=== PATIENT | female | born 1980 | race Native Hawaiian/Other Pacific Islander ===

== ENCOUNTER 2022-10-23 21:42 | Emergency (ER) | payer OTHER ==
[~2022-10-23] VITALS: Ht 154.9 cm; Wt 83.9 kg
[2022-10-23 21:50] VITALS: TEMP 99.3
[2022-10-24 01:15] VITALS: BP 122/70
== END 2022-10-24 01:15 | disposition home or self-care (01) ==
LOC: ED 21:42
DX: H10.11 Acute atopic conjunctivitis, right eye (principal); H18.821 Corneal disorder due to contact lens, right eye; F17.210 Nicotine dependence, cigarettes, uncomplicated
CPT/HCPCS: 99282